=== PATIENT | male | born 1970 | race Caucasian/White ===

== ENCOUNTER 2020-01-16 16:25 | Inpatient (IN) ==
[2020-01-16 17:29] LABS: Basophils # (auto) 0.01 K/uL (0-0.2); Basophils % (auto) 0.1 %; Eosinophils # (auto) 0.31 K/uL (0-0.5); Eosinophils % (auto) 3.1 %; Hematocrit (blood only) 44.4 % (42-52); Immature Granulocytes # (auto) 0.03 K/uL (0.00-0.02); Immature Granulocytes % (auto) 0.3 %; Lymphocytes # (auto) 2.33 K/uL (1.2-3.4); Mean Corpuscular Hemoglobin 27.5 pg (25-34); Mean Corpuscular Hgb Conc 33.8 g/dL (32-36); Mean Corpuscular Volume 81.5 fL (80-100); Mean Platelet Volume 8.8 fL (7.4-10.4); Monocytes # (auto) 1.09 K/uL (0.11-0.59); Monocytes % (auto) 10.7 %; Neutrophils # (auto) 6.37 K/uL (1.4-6.5); Neutrophils % (auto) 62.8 %; Platelet Count 214 K/uL (130-400); RDW Coefficient of Variation 14.4 % (11.5-14.5); RDW Standard Deviation 42.5 fL (36.4-46.3); Red Blood Count 5.45 M/uL (4.7-6.1); White Blood Count 10.14 K/uL (4.8-10.8)
[2020-01-16] MEDS ORDERED: SODIUM CHLORIDE 0.9% 1000ML 1,000 ML IV ONE (17:34)
--- NOTE | 2020-01-16 17:36 | Emergency Department Note ---
Impression & Plan Deep vein thrombosis of lower extremity, Superficial thrombophlebitis, Failure of outpatient treatment ED Provider Note NAME: DAMION MARTINEZ AGE: 49 SEX: M : 1970 ARRIVES VIA: Walk-In INFORMANT: [Patient] ED PROVIDER(S): [Tay Tilmlan MD] CHIEF COMPLAINT: Possible DVT HISTORY OF PRESENT ILLNESS: The patient is a 49-year-old male who states he has had pain behind his right knee for about 2 days. He is concerned about a DVT. He was here about a month and a half ago and diagnosed with a superficial clot. He was placed on Xarelto. He was prescribed 45 days but only took 30 days. The patient states that things were fine up until just yesterday when he noticed some pain and discomfort behind the knee. He is concerned about recurrent DVT/superficial clot. The pain is mild to moderate in severity. The patient is very active, he bikes a lot. He states that he is really never immobile. There has been no recent trauma. REVIEW OF SYSTEMS: See HPI for pertinent positives and negatives. A total of ten systems were reviewed and were otherwise negative. PMHx/PSHx: See Below SOCIAL HISTORY: See Below. PHYSICAL EXAM: GENERAL: Patient is in no acute distress. HEENT: No acute trauma, normocephalic atraumatic, mucous membranes moist, no nasal congestion, no scleral icterus. NECK: No stridor, no adenopathy, no meningismus, trachea is midline. LUNGS: Clear to auscultation bilaterally, no wheeze, no rhonchi, breath sounds equal. HEART: Without murmurs gallops or rubs, regular rate and rhythm. ABDOMEN: Soft, nontender, bowel sounds positive, no hernias, no peritonitis. EXTREMITIES: No cyanosis or edema, full range of motion of all the joints without pain or difficulty, no signs for acute trauma. Patient does have some discomfort to palpate the posterior aspect of the right knee, I do not feel any cord. NEUROLOGIC: Oriented x 3, no acute motor or sensory deficits, no focal weakness. SKIN: No rash, no jaundice, no diaphoresis. DIFFERENTIAL DIAGNOSIS: Superficial clot, DVT, Cho's cyst, cellulitis, strain, contusion, sprain. EMERGENCY DEPARTMENT COURSE/PROCEDURES: MEDICAL DECISION MAKING: There is no leukocytosis or concerning anemia. There is a normal platelet count. No coagulopathy. No significant electrolyte abnormality, no kidney failure. No worrisome liver enzyme elevation. Right lower extremity ultrasound shows a DVT in the popliteal vein. There also was superficial thrombosis of some surrounding calf veins. The patient presents with pain behind his right knee. He has a history of DVT and superficial thrombophlebitis. He was just treated with Xarelto about a month and a half ago. The patient has failed outpatient treatment. He now has a deep clot, he had a superficial clot just a month and a half ago. I do think a hospital stay is warranted. I spoke to the patient, I talked to the case loader operator. The on-call hospitalist was consulted. 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 Beliefs That Will Affect Care: None Current Living Situation: Alone Feels Safe at Home: Yes Allergies Allergies Allergy/AdvReac Type Severity Reaction Status Date / Time No Known Allergies Allergy Verified 01/16/20 17:52 Home Meds Home Medications Medication Instructions Recorded Confirmed No Known Home Medications 01/16/20 01/16/20 Results & Data (ED) Vital Signs Vital Signs - 24 hr 01/16/20 16:29 01/16/20 18:37 Temperature 36.8 C Temperature Source Oral Pulse Rate 88 Pulse Rate [Right Finger] 62 Respiratory Rate 20 19 Blood Pressure 161/113 H Blood Pressure [Right Arm] 155/93 H Blood Pressure Mean 129 Blood Pressure Mean [Right Arm] 113 Blood Pressure Position Sitting Pulse Oximetry 95 97 Oxygen Delivery Method Room Air Sepsis Recent Fever Within 48 Hours No Sepsis New/Unexplained Change in Mental Status No Sepsis Action Taken by Nursing No Action Required Home Medications Current Medication List: was personally reviewed by me Laboratory Data Attestation: I reviewed the patient's lab results. Result diagrams: 01/16/20 17:17 01/16/20 17:17 Lab Results 01/16/20 01/16/20 01/16/20 Range/Units 17:17 17:17 17:17 WBC 10.14 (4.8-10.8) K/uL RBC 5.45 (4.7-6.1) M/uL Hgb 15.0 (14.0-18.0) g/dL Hct 44.4 (42-52) % MCV 81.5 (80-100) fL MCH 27.5 (25-34) pg MCHC 33.8 (32-36) g/dL RDW Std Deviation 42.5 (36.4-46.3) fL RDW Coeff of Andres 14.4 (11.5-14.5) % Plt Count 214 (130-400) K/uL MPV 8.8 (7.4-10.4) fL Immature Gran % (Auto) 0.3 % Neut % (Auto) 62.8 % Lymph % (Auto) 23.0 % Emmons % (Auto) 10.7 % Eos % (Auto) 3.1 % Baso % (Auto) 0.1 % Neut # (Auto) 6.37 (1.4-6.5) K/uL Lymph # (Auto) 2.33 (1.2-3.4) K/uL Emmons # (Auto) 1.09 H (0.11-0.59) K/uL Eos # (Auto) 0.31 (0-0.5) K/uL Baso # (Auto) 0.01 (0-0.2) K/uL Immature Gran # (Auto) 0.03 H (0.00-0.02) K/uL PT 11.3 (9.0-12.0) Seconds INR 1.1 (0.9-1.1) APTT 25.6 (21.0-31.0) Seconds PTT Ratio 0.9 Sodium 138 (136-145) mmol/L Potassium 3.7 (3.5-5.1) mmol/L Chloride 109 H (98-107) mmol/L Carbon Dioxide 24 (21-32) mmol/L Anion Gap 5.0 (3-11) BUN 24 H (7-18) mg/dl Creatinine 1.29 (0.6-1.4) mg/dl Est Cr Clr Drug Dosing 83.7 ml/min Est GFR ( Amer) 75.5 Est GFR (Non-Af Amer) 65.1 BUN/Creatinine Ratio 18.4 (10-20) Glucose 80 (70-99) mg/dl Calcium 8.8 (8.5-10.1) mg/dl Total Bilirubin 0.5 (0.2-1) mg/dl AST 28 (15-37) U/L ALT 57 (12-78) U/L Alkaline Phosphatase 94 (45-117) U/L Total Protein 7.9 (6.4-8.2) gm/dl Albumin 3.6 (3.4-5.0) gm/dl Globulin 4.3 H (2.5-4.0) gm/dl Albumin/Globulin Ratio 0.8 L (0.9-2) Administered Medications Discontinued Medications Sodium Chloride (Nss 1000ml) 1,000 mls @ 999 mls/hr IV .Q1H1M ONE Stop: 01/16/20 18:34 Last Infusion: 01/16/20 18:44 Dose: 0 mls/hr Documented by: [id number] Admin: 01/16/20 17:56 Dose: 999 mls/hr Documented by: [id number] Imaging Data Radiologist's Impression: ULTRASOUND RIGHT LOWER EXTREMITY VENOUS CLINICAL HISTORY: Right leg pain. COMPARISON STUDY: Bilateral lower extremity venous ultrasound dated 12/05/2019. TECHNIQUE: Real-time, grayscale, and color Doppler sonography of the deep veins of the right lower extremity was performed from the inguinal crease to the calf. Compression and augmentation were utilized. FINDINGS: There is nearly occlusive acute appearing deep venous thrombosis identified in the right popliteal vein and extends in the superficial veins in the calf. The common femoral and superficial femoral veins are patent and normally compressible. The greater saphenous vein and the profunda femoris vein at the junction with the common femoral vein are clear. The visualized deep veins of the calf are patent. IMPRESSION: There is nearly occlusive an acute appearing deep venous thrombosis in the right popliteal vein. This extends into superficial veins in the popliteal fossa and the calf. Blood Pressure Blood Pressure Findings: Elevated blood pressure Blood Pressure Disposition: further management by hospitalist Discharge Plan Visit Data *Final* Discharge Date/Time: 01/16/20 20:34 Chief Complaint: Calf Pain Stated Complaint: SKIN PROBLEM ED Provider: Tay Tillman Discharge Problem: Deep vein thrombosis of lower extremity, Superficial thrombophlebitis, Failure of outpatient treatment Patient Disposition: Admitted As Inpatient Condition: Good Discharge Instructions Interventions: ED Discharge Assessment Last Done: 01/16/20 20:34 Discharge Problem: Deep vein thrombosis of lower extremity Qualifiers: Affected thrombotic vein of extremity: popliteal Chronicity: acute Laterality: right Qualified Code(s): I82.431 - Acute embolism and thrombosis of right popliteal vein Superficial thrombophlebitis Qualifiers: Superficial thrombophlebitis-Involved body area: lower extremity Laterality: right Qualified Code(s): I80.01 - Phlebitis and thrombophlebitis of superficial vessels of right lower extremity
[2020-01-16 17:41] LABS: INR 1.1 (0.9-1.1); Partial Thromboplastin Ratio 0.9; Partial Thromboplastin Time 25.6 Seconds (21.0-31.0); Prothrombin Time 11.3 Seconds (9.0-12.0)
[2020-01-16 17:46] LABS: Albumin Level 3.6 gm/dl (3.4-5.0); BUN Creatinine Ratio 18.4 (10-20); Calcium 8.8 mg/dl (8.5-10.1); Creatinine Clr Calc Pharmacy 83.7 ml/min; Est GFR (African American) 75.5; Est GFR (Non-African American) 65.1; Potassium 3.7 mmol/L (3.5-5.1)
[2020-01-16 17:49] LABS: Albumin Globulin Ratio 0.8 (0.9-2); Bilirubin,Total 0.5 mg/dl (0.2-1); Globulin 4.3 gm/dl (2.5-4.0); Total Protein 7.9 gm/dl (6.4-8.2)
--- NOTE | 2020-01-16 18:31 | Ultrasound Report ---
ULTRASOUND RIGHT LOWER EXTREMITY VENOUS CLINICAL HISTORY: Right leg pain. COMPARISON STUDY: Bilateral lower extremity venous ultrasound dated 12/05/2019. TECHNIQUE: Real-time, grayscale, and color Doppler sonography of the deep veins of the right lower ex tremity was performed from the inguinal crease to the calf. Compression and augmentation were utilize d. FINDINGS: There is nearly occlusive acute appearing deep venous thrombosis identified in the right po pliteal vein and extends in the superficial veins in the calf. The common femoral and superficial fem oral veins are patent and normally compressible. The greater saphenous vein and the profunda femoris vein at the junction with the common femoral vein are clear. The visualized deep veins of the calf ar e patent. IMPRESSION: There is nearly occlusive an acute appearing deep venous thrombosis in the right poplitea l vein. This extends into superficial veins in the popliteal fossa and the calf. ACT 112: Negative or not required by law. Electronically signed by: Tay Saha M.D. 01/16/2020 6:29 PM
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
[2020-01-16] MEDS ORDERED: ACETAMINOPHEN 325 MG TAB PO PRN (21:19)
[2020-01-16] MEDS ORDERED: POLYETHYLENE (MIRALAX) 17 GM PACK PO PRN (21:19)
[2020-01-16] MEDS ORDERED: HEPARIN IV BOLUS 7,000 UNITS in SYRINGE 0 ML IV ONE (22:30)
[2020-01-16] MEDS: HEPARIN SODIUM/DEXTROSE 25,000 UNITS/500 ML BAG IV SCH (22:45)
[2020-01-17 06:16] LABS: Basophils # (auto) 0.02 K/uL (0-0.2); Basophils % (auto) 0.3 %; Eosinophils # (auto) 0.39 K/uL (0-0.5); Hematocrit (blood only) 42.5 % (42-52); Hemoglobin 14.2 g/dL (14.0-18.0); Immature Granulocytes # (auto) 0.01 K/uL (0.00-0.02); Immature Granulocytes % (auto) 0.2 %; Lymphocytes % (auto) 35.5 %; Mean Corpuscular Hemoglobin 27.5 pg (25-34); Mean Corpuscular Hgb Conc 33.4 g/dL (32-36); Mean Corpuscular Volume 82.4 fL (80-100); Mean Platelet Volume 9.3 fL (7.4-10.4); Monocytes # (auto) 0.74 K/uL (0.11-0.59); Monocytes % (auto) 11.4 %; Neutrophils # (auto) 3.01 K/uL (1.4-6.5); Neutrophils % (auto) 46.6 %; Platelet Count 189 K/uL (130-400); RDW Coefficient of Variation 14.5 % (11.5-14.5); RDW Standard Deviation 43.8 fL (36.4-46.3); Red Blood Count 5.16 M/uL (4.7-6.1); White Blood Count 6.47 K/uL (4.8-10.8)
[2020-01-17 06:39] LABS: Partial Thromboplastin Time 55.2 Seconds (21.0-31.0)
[2020-01-17 06:42] LABS: BUN Creatinine Ratio 16.5 (10-20); Calcium 7.9 mg/dl (8.5-10.1); Creatinine Clr Calc Pharmacy 117.1 ml/min; Est GFR (African American) 102.7; Est GFR (Non-African American) 88.6; Potassium 3.9 mmol/L (3.5-5.1)
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
--- NOTE | 2020-01-17 11:22 | Consultation Report ---
DATE OF CONSULTATION: 01/17/2020 REASON FOR CONSULTATION: Recurrent left lower extremity deep venous thrombosis. 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 The patient apparently had history of engaging in hormone replacement therapy several years ago. He subsequently presented [facility] Room complaining of right lower extremity popliteal pain. He estimates back in November with a superficial thrombophlebitis in November. He was placed on Xarelto for 45 days, but unfortunately financial restraints forced him to discontinue after 30 days. He reported initial alleviation of symptoms. However, after a bike ride recently, began to experience sudden swelling and tightness behind the right knee. The symptoms persisted, not improved with exercise. The patient tried pfan-vuw-jbnyhjy remedies including a homeopathic supplements, garlic, turmeric, vitamin K and vitamin C supplementation. The patient reports no other inciting or alleviating factors. Apparently, he had a prior DVT several years ago and was treated for what he believes 1 year. The patient has never been formally evaluated for thrombophilia. Nor does he have family history of thrombophilia. Interesting note, the patient was experimenting with hormone therapy back in 2010 which may have been the precipitating factor for his initial DVT. The patient is very interested in pursuing possible genetic or acquired links to his ongoing thrombotic problems. The main point taken away from this morning's consultation is his inability to afford anticoagulation and should engage a case management to seek assistance. Perhaps transitioning him to Coumadin may be the financially prudent way to proceed. PAST MEDICAL HISTORY: Positive only for previous deep vein thromboses. HOME MEDICATIONS: None. ALLERGIES: None. 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 He is a nonsmoker, nondrinker. FAMILY HISTORY: Noncontributory. REVIEW OF SYSTEMS: Other than leg pain described, all other systems are negative. PHYSICAL EXAMINATION: GENERAL: Very pleasant 49-year-old gentleman in no acute distress. VITAL SIGNS: Temperature 36.7, pulse 61, respiratory rate 18, blood pressure 128/83. SKIN: Warm, dry, noncyanotic without petechia, rash or ecchymosis. HEENT: Atraumatic, normocephalic. Eyes: PERRLA, EOMI. Sclerae nonicteric. No conjunctival injection. Nares patent without rhinorrhea or discharge. Throat is clear. Tongue midline. Mucous membranes are moist. NECK: Supple without JVD or thyromegaly. LYMPH: No cervical, supraclavicular palpable nodes. HEART: Regular rate and rhythm. No clicks, rubs, murmurs or gallops. LUNGS: Clear to auscultation bilaterally. ABDOMEN: Soft, nontender, nondistended, without palpable hepatosplenomegaly. EXTREMITIES: No clubbing, cyanosis or edema. Pulses and strength are intact in all 4 quadrants. NEUROLOGICALLY: He is awake, alert and oriented x3. Cranial nerves are grossly intact. LABORATORY DATA: WBC count 6470, hemoglobin 12.2, platelet count 189,000. PTT 55.2 seconds on unfractionated heparin. Sodium 141, potassium 3.9, chloride 113, carbon dioxide 23, creatinine 1.0. BUN 17. RADIOGRAPHIC DATA: Doppler study on admission, nearly occlusive acute appearing deep vein thrombosis within the right popliteal vein extends into the superficial veins, popliteal fossa and calf. DIAGNOSES: Persistent deep venous thrombosis original superficial thrombosis with progression or with propagation. PLAN: The patient is a pleasant 49-year-old gentleman with an interesting thrombotic history. He had developed DVT, he estimates a decade ago. Perhaps time he was engaged in a gender identification syndrome and utilizing estrogen replacement therapy. He was more recently diagnosed with superficial thrombophlebitis and placed on oral direct thrombin inhibitor for a scheduled 45 days, but discontinued after 30 days because of financial constraints. Unfortunately, the thrombosis propagated in that time and now he suffers from an acute DVT. Standard of care is 3-6 months depending on case. The patient was very interested in pursuing both genetic and acquired risk factors and thus instructed the managing hospitalist to pursue a hypercoag panel. I would be very happy to reengage with the patient as an outpatient to discuss results and make formal recommendations regarding duration of anticoagulation. To appropriately address his financial issues, perhaps either assistance could be obtained to resume DOAC therapy or perhaps transition him to Coumadin with consultation to the anticoagulation clinic. Agree with current medical management and have nothing further to add. Thank you very much for allowing me to participate in the care of this very pleasant gentleman. ROMINA
[2020-01-17] MEDS ORDERED: WARFARIN SOD 10 MG TAB PO ONE (14:15)
[2020-01-17] MEDS: HEPARIN SODIUM/DEXTROSE 25,000 UNITS/500 ML BAG IV SCH (14:22)
--- NOTE | 2020-01-17 22:57 | Hospitalist Progress Note ---
Date of Service January 17, 2020 Assessment & Plan (1) Recurrent deep vein thrombosis (DVT): Deep vein thrombosis of lower extremity: Ted carlson is 49 yo M who's preferred name is "Susana" with a past medical history of DVT with hypercoagulability work-up not showing any known cause who presents with a right lower extremity popliteal DVT after being seen for SVT 1 month ago and completing 30 of 45 days of Xarelto. Recurrent DVT Patient with history of DVT/PE many years ago, had a SVT treated with 30 days of Xarelto 1 month ago Patient presents with 3 days of right popliteal fullness and pain, ultrasound consistent with popliteal DVT Patient has had recurrent DVTs with PE, recommend lifelong therapy versus filter evaluation Admit on heparin GTT, heme-onc consulted Appears his failed treatment is caused by financial reasons. Patient is agreeable to treatement. will place on warfarin and will monitor INR. ordered hypercoagulable workup. will continue to have patient on heparin. Patient prefers to be called Susana, history of male to female identity was on estrogen many years ago in 2010 but denies any recent hormonal therapy in the last several years No chronic medical conditions FEN GI: Regular diet Disposition: Med telemetry while on heparin GTT CODE STATUS: Full code (2) Superficial thrombophlebitis: (3) Recurrent deep vein thrombosis (DVT): Admission and Anticipated Discharge Date Admission Date: January 16, 2020 Subjective 49 yo patient reports feeling well. Patient still reports pain in the right popliteal fossa. Denies any shortness of breath. Review of Systems Review of Systems: All systems reviewed & are unremarkable except as noted in HPI & below Physical Exam Physical Exam: General: A&Ox3. NAD. Cooperative. HEENT: Atraumatic, normocephalic. Pulm: CTAB A&P. -wheezes, -rales, -rhonchi. Symmetrical chest rise. No increase work of breathing. No respiratory distress. Cardiac: RRR, -mrg. Radial pulses intact and symmetrical. Abdominal: Nontender, nondistended, soft. BS present. Extremity: Distal extremities warm, dry bilaterally. No swelling or calf asymmetry of the lower extremities. Sensation to soft touch intact and hallux and fingertips bilaterally. Tank Tender strength, wrist flexion/extension, elbow flexion, ankle dorsiflexion/plantar flexion intact 5/5 and symmetrical. Homans negative. Patient endorses pain behind his right calf, mild fullness appreciated. Results & Data Results & Data ([facility]) Vital Signs (Past 12 Hours) Vital Signs Temp Pulse Resp BP BP Pulse Ox 01/17/20 22:54 36.8 C 72 18 91/50 L 94 01/17/20 19:12 36.9 C 49 L 18 130/74 94 01/17/20 15:36 36.6 C 57 L 17 118/74 97 01/17/20 11:12 36.6 C 55 L 18 132/79 97 PG Care Time/CCT Total # of Minutes Spent Total Time Spent with Patient: Total time spent is greater than 50% in coordination of care (as documented) at patient's floor/unit and/or counseling patient: Coding Level of Care Code 93323 Subseq Hosp Care Lvl 3 Diagnoses Recurrent deep vein thrombosis (DVT) I82.409 Time Spent (min) 35
--- NOTE | 2020-01-18 02:27 | Billing Data ---
Date of Service January 18, 2020 Coding Level of Care Code 05406 Initial Inpt Care Lvl 2
[2020-01-18 07:08] LABS: INR 1.1 (0.9-1.1); Partial Thromboplastin Ratio 1.6
[2020-01-18] MEDS: HEPARIN SODIUM/DEXTROSE 25,000 UNITS/500 ML BAG IV SCH (07:11)
[2020-01-18 07:23] LABS: Partial Thromboplastin Time 45.6 Seconds (21.0-31.0)
[2020-01-18] MEDS ORDERED: HEPARIN IV BOLUS 3,000 UNITS in SYRINGE 0 ML IV ONE (08:15)
[2020-01-18] MEDS ORDERED: ENOXAPARIN 1.5 MG/KG SQ SCH (10:00)
[2020-01-18] MEDS: ENOXAPARIN INJ 120 MG/0.8 ML SYR SQ SCH ×2 (12:14→20:50)
--- NOTE | 2020-01-18 21:40 | Hospitalist Progress Note ---
Date of Service January 18, 2020 Assessment & Plan (1) Recurrent deep vein thrombosis (DVT): Deep vein thrombosis of lower extremity: Ted carlson is 49 yo M who's preferred name is "Susana" with a past medical history of DVT with hypercoagulability work-up not showing any known cause who presents with a right lower extremity popliteal DVT after being seen for SVT 1 month ago and completing 30 of 45 days of Xarelto. Recurrent DVT Patient with history of DVT/PE many years ago, had a SVT treated with 30 days of Xarelto 1 month ago Patient presents with 3 days of right popliteal fullness and pain, ultrasound consistent with popliteal DVT Patient has had recurrent DVTs with PE, recommend lifelong therapy versus filter evaluation Admit on heparin GTT, heme-onc consulted Appears his failed treatment is caused by financial reasons. Patient is agreeable to treatment, but is having second thoughts received 10 mg of warfarin on 01/16, will receive an additional dose today and will monitor INR. ordered hypercoagulable workup. will place the patient on lovenox. Concern that patient may decide to stop medications altogether at discharge. will contiue to try to reason with patient. Patient prefers to be called Susana, history of male to female identity was on estrogen many years ago in 2010 but denies any recent hormonal therapy in the last several years No chronic medical conditions FEN GI: Regular diet Disposition: Med telemetry while on heparin GTT CODE STATUS: Full code Admission and Anticipated Discharge Date Admission Date: January 17, 2020 Subjective 49 yo male reports feeling well. He has questions about blood thinning medication and reports he would like to have his clots treated with diet, exercise and supplements. He is wondering if he really needs to be on lifelong treatment. Review of Systems Review of Systems: All systems reviewed & are unremarkable except as noted in HPI & below Physical Exam Physical Exam: General: A&Ox3. NAD. Cooperative. HEENT: Atraumatic, normocephalic. Pulm: CTAB A&P. -wheezes, -rales, -rhonchi. Symmetrical chest rise. No increase work of breathing. No respiratory distress. Cardiac: RRR, -mrg. Radial pulses intact and symmetrical. Abdominal: Nontender, nondistended, soft. BS present. Extremity: Distal extremities warm, dry bilaterally. No swelling or calf asymmetry of the lower extremities. Sensation to soft touch intact and hallux and fingertips bilaterally. [employer] strength, wrist flexion/extension, elbow flexion, ankle dorsiflexion/plantar flexion intact 5/5 and symmetrical. Homans negative. Patient endorses pain behind his right calf, mild fullness appreciated. Results & Data Results & Data ([facility]) Vital Signs (Past 12 Hours) Vital Signs Temp Pulse Pulse Resp BP BP Pulse Ox 01/18/20 19:22 36.6 C 51 L 124/77 95 01/18/20 16:57 62 01/18/20 15:52 36.8 C 53 L 19 125/83 96 01/18/20 13:00 36.4 C L 54 L 19 145/89 H 96 PG Care Time/CCT Total # of Minutes Spent Total Time Spent with Patient: Total time spent is greater than 50% in coordination of care (as documented) at patient's floor/unit and/or counseling patient: Coding Level of Care Code 50269 Subseq Hosp Care Lvl 3 Diagnoses Recurrent deep vein thrombosis (DVT) I82.409 Time Spent (min) 35
[2020-01-19] MEDS: ENOXAPARIN INJ 120 MG/0.8 ML SYR SQ SCH ×2 (07:32→20:36)
[2020-01-19 07:53] LABS: INR 1.2 (0.9-1.1); Partial Thromboplastin Ratio 1.1; Prothrombin Time 12.4 Seconds (9.0-12.0)
[2020-01-19] MEDS ORDERED: WARFARIN SOD 10 MG TAB PO ONE (09:00)
[2020-01-19] MEDS ORDERED: WARFARIN SOD 5 MG TAB PO ONE (19:54)
--- NOTE | 2020-01-20 07:14 | Hospitalist Progress Note ---
Date of Service January 19, 2020 Assessment & Plan (1) Recurrent deep vein thrombosis (DVT): Deep vein thrombosis of lower extremity: Ted carlson is 49 yo M who's preferred name is "Susana" with a past medical history of DVT with hypercoagulability work-up not showing any known cause who presents with a right lower extremity popliteal DVT after being seen for SVT 1 month ago and completing 30 of 45 days of Xarelto. Recurrent DVT Patient with history of DVT/PE many years ago, had a SVT treated with 30 days of Xarelto 1 month ago Patient presents with 3 days of right popliteal fullness and pain, ultrasound consistent with popliteal DVT Patient has had recurrent DVTs with PE, recommend lifelong therapy versus filter evaluation Admit on heparin GTT, now on lovenox.heme-onc consulted Appears his failed treatment is caused by financial reasons. Patient is agreeable to treatment, but is having second thoughts received 10 mg of warfarin on 01/16, received second dose of 10mg in AM of 01/18, discussed with pharmacy, ok to give 5 mg in PM of 01/18. will anticipate he will require between 5 mg-7mg tomorrow, will recommend to [place]hip in afternoon given close proximity of today's doses. ordered hypercoagulable workup. Concern that patient may decide to stop medications altogether at discharge: appears he will be compliant this time.. will continue to try to reason with patient. Patient prefers to be called Susana, history of male to female identity was on estrogen many years ago in 2010 but denies any recent hormonal therapy in the last several years No chronic medical conditions FEN GI: Regular diet Disposition: Med telemetry while on heparin GTT CODE STATUS: Full code Admission and Anticipated Discharge Date Admission Date: January 17, 2020 Subjective Patient is more agreeable to medications today. He states his pain has improved. He states he will not take tumeric after discussing with me. Review of Systems Review of Systems: All systems reviewed & are unremarkable except as noted in HPI & below Physical Exam Physical Exam: General: A&Ox3. NAD. Cooperative. HEENT: Atraumatic, normocephalic. Pulm: CTAB A&P. -wheezes, -rales, -rhonchi. Symmetrical chest rise. No increase work of breathing. No respiratory distress. Cardiac: RRR, -mrg. Radial pulses intact and symmetrical. Abdominal: Nontender, nondistended, soft. BS present. Extremity: Distal extremities warm, dry bilaterally. No swelling or calf asymmetry of the lower extremities. Sensation to soft touch intact and hallux and fingertips bilaterally. [employer] strength, wrist flexion/extension, elbow flexion, ankle dorsiflexion/plantar flexion intact 5/5 and symmetrical. Homans negative. Patient endorses pain behind his right calf, mild fullness appreciated. Results & Data Results & Data ([facility]) Vital Signs (Past 12 Hours) Vital Signs Temp Pulse Pulse Resp BP Pulse Ox 01/20/20 03:42 36.5 C 54 L 18 136/87 95 01/20/20 00:53 47 L 01/19/20 22:00 36.6 C 40 L 18 129/86 94 01/19/20 19:40 36.6 C 52 L 18 148/99 H 98 PG Care Time/CCT Total # of Minutes Spent Total Time Spent with Patient: Total time spent is greater than 50% in coordination of care (as documented) at patient's floor/unit and/or counseling patient: Coding Level of Care Code 90622 Subseq Hosp Care Lvl 3 Diagnoses Recurrent deep vein thrombosis (DVT) I82.409 Time Spent (min) 45
[2020-01-20 08:42] LABS: Hematocrit (blood only) 48.5 % (42-52); Mean Corpuscular Hemoglobin 26.9 pg (25-34); Mean Corpuscular Volume 81.5 fL (80-100); Mean Platelet Volume 9.2 fL (7.4-10.4); Platelet Count 217 K/uL (130-400); RDW Coefficient of Variation 14.3 % (11.5-14.5); RDW Standard Deviation 42.6 fL (36.4-46.3); Red Blood Count 5.95 M/uL (4.7-6.1); White Blood Count 5.96 K/uL (4.8-10.8)
[2020-01-20] MEDS: ENOXAPARIN INJ 120 MG/0.8 ML SYR SQ SCH ×2 (08:44→21:11)
[2020-01-20 08:53] LABS: INR 1.7 (0.9-1.1); Partial Thromboplastin Ratio 1.2; Partial Thromboplastin Time 34.1 Seconds (21.0-31.0); Prothrombin Time 17.2 Seconds (9.0-12.0)
[2020-01-20 09:19] LABS: BUN Creatinine Ratio 13.4 (10-20); Calcium 9.2 mg/dl (8.5-10.1); Creatinine Clr Calc Pharmacy 100.3 ml/min; Est GFR (African American) 85.8; Est GFR (Non-African American) 74.1; Potassium 4.1 mmol/L (3.5-5.1)
--- NOTE | 2020-01-20 14:28 | Hospitalist Progress Note ---
Date of Service January 20, 2020 Assessment & Plan (1) Recurrent deep vein thrombosis (DVT): Recurrent DVT. Patient with history of DVT/PE many years ago, had a SVT treated with 30 days of Xarelto 1 month ago. - Started warfarin - Continue 5 mg PO daily. - Will arrange [facility] follow-up. - Continue Lovenox 110 mg SQ BID -> Per UpToDate, will need to overlap for 2-3 days once INR > 2. (2) Gender dysphoria: Patient prefers to be called Susana, history of male to female identity was on estrogen many years ago in 2010 but denies any recent hormonal therapy in the last several years. - No inpatient needs Admission and Anticipated Discharge Date Admission Date: January 17, 2020 Subjective No complaints today. Overall doing well. Reports no fevers/chills, chest pain, shortness of breath, abdominal pain, nausea, or vomiting. Physical Exam Constitutional: WD/WN, vitals as above Eyes: EOM intact bilaterally; no conjunctival abnormality ENMT: external ear and nose normal, oropharynx normal Neck: trachea midline, no thyromegaly normal visual inspection Respiratory: normal respiratory effort, lungs clear to auscultation no respiratory distress Cardiovascular: RRR, no murmur, no edema Gastrointestinal (Abdomen): Inspection/Auscultation: abdomen normal to inspection; abdomen not distended Musculoskeletal: no cyanosis or clubbing, extremities motor strength 5/5 Skin: no rashes, warm and dry Neurologic: moves all extremities and awake Psychiatric: Orientation: alert, oriented to person and cooperative Results & Data Results & Data ([facility]) Vital Signs (Past 12 Hours) Vital Signs Temp Pulse Pulse Resp BP BP Pulse Ox 01/20/20 11:38 36.5 C 59 L 18 123/79 97 01/20/20 09:00 47 L 01/20/20 07:47 36.5 C 50 L 18 120/77 93 01/20/20 03:42 36.5 C 54 L 18 136/87 95 PG Care Time/CCT Total # of Minutes Spent Total Time Spent with Patient: Total time spent is greater than 50% in coordination of care (as documented) at patient's floor/unit and/or counseling patient: Coding Level of Care Code 47922 Subseq Hosp Care Lvl 3 Diagnoses Recurrent deep vein thrombosis (DVT) I82.409 Gender dysphoria F64.9
[2020-01-20] MEDS ORDERED: WARFARIN SOD 5 MG TAB PO SCH (16:00)
--- NOTE | 2020-01-20 17:32 | Billing Data ---
Date of Service January 20, 2020 Coding Level of Care Code 00663 Prolonged Care (int'l) Comment In patient's room from 10:30 - 10:45am and then 3:30 to 3:50pm.
[2020-01-20 23:38] LABS: Protein S Functional(Activity) 111 % (70-150)
[2020-01-21 08:14] LABS: Hemoglobin 15.7 g/dL (14.0-18.0); Mean Corpuscular Hemoglobin 27.7 pg (25-34); Mean Corpuscular Hgb Conc 34.1 g/dL (32-36); Mean Corpuscular Volume 81.1 fL (80-100); Mean Platelet Volume 9.4 fL (7.4-10.4); Platelet Count 213 K/uL (130-400); RDW Coefficient of Variation 14.3 % (11.5-14.5); RDW Standard Deviation 42.1 fL (36.4-46.3); Red Blood Count 5.67 M/uL (4.7-6.1); White Blood Count 6.27 K/uL (4.8-10.8)
[2020-01-21] MEDS: ENOXAPARIN INJ 120 MG/0.8 ML SYR SQ SCH (08:22)
[2020-01-21 08:39] LABS: INR 1.9 (0.9-1.1); Prothrombin Time 19.4 Seconds (9.0-12.0)
[2020-01-21 10:04] LABS: BUN Creatinine Ratio 12.9 (10-20); Calcium 8.3 mg/dl (8.5-10.1); Est GFR (African American) 96.8; Est GFR (Non-African American) 83.5; Magnesium 2.5 mg/dl (1.8-2.4); Potassium 4.1 mmol/L (3.5-5.1)
[2020-01-21] MEDS ORDERED: WARFARIN SOD 10 MG TAB PO ONE (13:29)
[2020-01-21] MEDS ORDERED: ENOXAPARIN INJ 60 MG/0.6 ML SYR SQ ONE (13:35)
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
== END 2020-01-21 15:32 | disposition home or self-care (01) | DRG 301 ==
LOC: 2W 16:25 → ED 16:25 → SUATTDRO 20:08 → 2W 20:34 → SUATTDRO 01-17 22:57